=== PATIENT | female | born 1990 | race Two or more races ===

== ENCOUNTER 2021-02-16 20:06 | Observation (INO) | payer MEDICAID, OTHER ==
[~2021-02-16] VITALS: Ht 162.6 cm; Wt 85.0 kg
--- NOTE | 2021-02-16 20:57 | NUR ---
GIVEN REPORT TO NISHANT OVALLE RN IN OR
--- NOTE | 2021-02-16 21:00 | NUR ---
ALL PATIENT CLOTHING REMOVED AND PLACED IN PATIENT BELONGINGS BAG WITH PATIENT STICKER. PATIENT IS READY FOR SURGERY WAITING FOR COVID TEST RESULT AND OR TRANSPORT. VSS. WILL CONTINUE TO MONITOR.
--- NOTE | 2021-02-16 21:20 | NUR ---
PATIENT BEING TRANSPORTED AT THIS BY TO SURGERY BY OR NURSE.
[2021-02-16] MEDS ORDERED: FENTANYL PF 250 MCG/5ML ONE (21:21)
[2021-02-16] MEDS ORDERED: ROCURONIUM 10MG/ML,5ML ONE (21:23)
[2021-02-16] MEDS ORDERED: SUCCINYLCHOLINE 20 MG/ML, 10ML ONE (21:23)
[2021-02-16] MEDS ORDERED: PROPOFOL 10 MG/ML, 20ML ONE (21:23)
[2021-02-16] MEDS ORDERED: BUPIVACAINE/PF 0.25% ONE (21:30)
[2021-02-16] MEDS ORDERED: EPINEPHRINE 1 MG/ML, 1ML ONE (21:31)
[2021-02-16] MEDS ORDERED: CEFAZOLIN 1,000 MG ONE ×2 (22:06)
[2021-02-16] MEDS ORDERED: BUPIVACAINE/PF 0.25% INFIL ONE (22:24)
[2021-02-16] MEDS ORDERED: DEXAMETHASONE 4 MG/ML, 1ML ONE ×2 (22:32)
[2021-02-16] MEDS ORDERED: ONDANSETRON 2MG/ML, 2ML ONE (22:32)
[2021-02-16] MEDS ORDERED: KETOROLAC 30 MG/1 ML ONE ×2 (22:41→23:30)
[2021-02-16] MEDS ORDERED: PROMETHAZINE 25 MG/ML, 1ML IVPush PRN (23:00)
[2021-02-16] MEDS ORDERED: FENTANYL PF 100 MCG/2ML IV PRN (23:00)
[2021-02-16] MEDS ORDERED: ACETAMINOPHEN 325 MG TABLET PO PRN (23:00)
[2021-02-16] MEDS ORDERED: OXYcodone 5 MG/5 ML ORAL.SOL UDC PO PRN (23:00)
[2021-02-16] MEDS ORDERED: MIDAZOLAM 1 MG/ML, 2ML IV PRN (23:00)
[2021-02-16] MEDS ORDERED: LABETALOL 5MG/ML, 20ML IV PRN (23:00)
[2021-02-16] MEDS ORDERED: ONDANSETRON 2MG/ML, 2ML IVPush PRN (23:00)
[2021-02-16] MEDS ORDERED: MEPERIDINE/PF 25MG/0.5ML IVPush PRN (23:00)
[2021-02-16] MEDS ORDERED: hydrALAzine 20 MG/ML, 1ML IV PRN (23:00)
[2021-02-16] MEDS ORDERED: HYDROmorphone 1 MG/ML, 1ML INJ IVPush PRN (23:00)
[2021-02-16] MEDS ORDERED: IBUP-1223 PO (23:29)
[2021-02-16] MEDS ORDERED: OXYC1TAB14 PO (23:29)
[2021-02-16] MEDS ORDERED: DOCU-131 PO (23:29)
[2021-02-16] MEDS ORDERED: PLEASE ENTER ALLERGIES MC SCH (23:30)
[2021-02-16] MEDS ORDERED: OXYcodone 5 MG/5 ML ORAL.SOL UDC ONE (23:31)
[2021-02-17] MEDS ORDERED: KETOROLAC 30 MG/1 ML IVPush SCH
[2021-02-17 00:28] VITALS: BP 102/64
[2021-02-17] MEDS ORDERED: LACTATED RINGERS 1,000 ML IV SCH (01:00)
[2021-02-17] MEDS ORDERED: ONDANSETRON 2MG/ML, 2ML IV PRN (01:00)
[2021-02-17] MEDS ORDERED: HYDROmorphone 1 MG/ML, 1ML INJ IV PRN (01:00)
[2021-02-17] MEDS ORDERED: OXYcodone/APAP 5/325MG TABLET PO PRN (01:00)
== END 2021-02-17 02:30 | disposition home or self-care (01) ==
LOC: ED 20:32 → INTOOBSV 20:38 → EDIP 20:38 → 4NE 02-17 00:03
PROVIDERS: ADMIT Obstetrics & Gynecology; ATTEND Obstetrics & Gynecology
DX: O00.90 Unspecified ectopic pregnancy without intrauterine pregnancy (principal); Z20.822 Contact with and (suspected) exposure to COVID-19; N83.202 Unspecified ovarian cyst, left side; K66.1 Hemoperitoneum; N92.6 Irregular menstruation, unspecified; F43.10 Post-traumatic stress disorder, unspecified; F41.8 Other specified anxiety disorders; M06.9 Rheumatoid arthritis, unspecified; F17.200 Nicotine dependence, unspecified, uncomplicated; Z79.899 Other long term (current) drug therapy
CPT/HCPCS: 36415; 58662; 59151; 85014; 85018; 86850; 86900; 87635; 88305; G0378; J0171; J0330; J0690; J1100; J1885; J2405; J2704; J3010

== ENCOUNTER 2021-02-23 00:37 | Emergency (ER) | payer MEDICAID, OTHER ==
[~2021-02-23] VITALS: Ht 162.6 cm; Wt 84.0 kg
[~2021-02-23 00:37] MED LIST: DOCU-131 PO; IBUP-1223 PO; OXYC1TAB14 PO
[2021-02-23 00:43] VITALS: BP 142/80
[2021-02-23 01:38] LABS: BASOPHILS % (AUTO) 1 % (0-1); EOSINOPHILS % (AUTO) 2 % (1-7); LYMPHOCYTES % (AUTO) 18 % (22-44); MEAN CORPUSCULAR HEMOGLOBIN 30.1 pg (27.0-34.8); MEAN CORPUSCULAR HGB CONC 33.9 g/dL (32.4-35.8); MEAN PLATELET VOLUME 9.1 fL (7.4-10.4); MONOCYTES % (AUTO) 7 % (2-9); NEUTROPHILS % (AUTO) 72 % (42-75); PLATELET COUNT 217 x10^3/uL (130-400); RED BLOOD COUNT 4.11 x10^6/uL (3.82-5.3)
[2021-02-23 01:49] LABS: ALBUMIN 3.4 g/dL (3.4-5.0); ANION GAP 7 mmol/L (5-15); CALCIUM 8.6 mg/dL (8.5-10.1); CHLORIDE 109 mmol/L (98-107); CREATININE 0.77 mg/dL (0.55-1.02)
--- NOTE | 2021-02-23 02:46 | NUR ---
PATIENT REPORTS SHE HAD SURGERY FOR AN ECTOPIC 02/16. YESTERDAY SHE STARTED HAVING SOME "MUCUS BLOOD WHEN WIPING". DENIES CRAMPING.
[2021-02-23] MEDS ORDERED: ONDANSETRON ODT 4 MG PO ONE (03:30)
[2021-02-23] MEDS ORDERED: ONDANSETRON ODT 8 MG ONE (03:46)
--- NOTE | 2021-02-23 03:49 | NUR ---
PATIENT MEDICATED PER SEP. NAD AT THIS TIME WILL CONTINUE TO MONITOR
--- NOTE | 2021-02-23 05:15 | NUR ---
Patient given discharge instructions and they have confirmed that they understand the instructions. Patient ambulatory with steady gait. NAD, all questions answered appropriately, denies additional needs at this time. No personal belongings left in room after discharge.
== END 2021-02-23 05:36 | disposition home or self-care (01) ==
LOC: ED 05:15
DX: N93.8 Other specified abnormal uterine and vaginal bleeding (principal); F10.10 Alcohol abuse, uncomplicated; R11.0 Nausea; F17.210 Nicotine dependence, cigarettes, uncomplicated; Y90.0 Blood alcohol level of less than 20 mg/100 ml
CPT/HCPCS: 36415; 76830; 80048; 82040; 85025; 99284; 99406; Q0162